=== PATIENT | female | born 1985 | race Caucasian/White ===

== ENCOUNTER 2020-01-13 10:52 | Day surgery (SDC) | payer OTHER, BC ==
[2020-01-13 11:55] VITALS: BMI 31.4
[2020-01-13] MEDS ORDERED: hydrALAZINE 20 MG/ML VIAL SLOW IVP PRN (12:11)
[2020-01-13 13:25] LABS: Bacteria/HPF None Seen HPF (None Seen); Bilirubin Negative (Negative); Blood, Urine Negative (Negative); Clarity Clear (Clear); Glucose, Urine (Dipstick) Normal (Negative); Leukocyte Negative Leu/uL (Negative); Nitrite Negative (Negative); Protein, Urine (Dipstick) Negative (Neg-Trace); RBC/HPF 0-3 HPF (0-3); Squamous Epithelial None Seen HPF (0-3); Urobilinogen Normal mg/dL (Less than 2); WBC/HPF 0-3 HPF (0-3)
--- NOTE | 2020-01-13 17:08 | PRG ---
DATE OF SERVICE: 01/13/2020 PRIMARY OB: Dr. Sabrina Myers. CHIEF COMPLAINT: Decreased movement. HISTORY OF PRESENT ILLNESS: The patient is a 34-year-old female; G1, P0 female with an intrauterine at 27 weeks and 6 days, presents to Labor and Delivery with a 1-day history of decreased movement. The patient reports, however, that by the time she came here and had monitors placed, she began feeling the baby move again. In the process of her evaluation, patient also reports that she has had a 5-day history of fever, a recurrent headache, urinary urgency, dysuria , and overall feeling bad. The patient today reports a history of urinary tract infections and kidney stones in the past. The patient denies cough or shortness of breath. She reports nausea and vomiting, 3 to 4 times a day for the last 4 to 5 days. She denies diarrhea or constipation. She reports that the skin rash has been present for some time now and has been evaluated by her primary provider and several dermatologists and has been recommended to be seen by Rheumatology. The pt reports the rash is improving symptomatically with topical steroid. The patient denies back pain, hip problems, knee problems. Denies vaginal bleeding or leakage of fluid. Denies urinary frequency and does report dysuria. PAST MEDICAL HISTORY: 1. History of kidney stones. 2. Recurrent urinary tract infections. 3. Anxiety. PAST SURGICAL HISTORY: Negative. ALLERGIES: AZITHROMYCIN, PENICILLINS, AND BACTRIM. SOCIAL HISTORY: Denies drug, alcohol, or tobacco use. OB LABS: Unavailable at time of dictation. MEDICATIONS: vitamins and Tylenol. REVIEW OF SYSTEMS: Per HPI. PHYSICAL EXAMINATION: VITAL SIGNS: Blood pressure 126/65, heart rate of 86, saturating 99% on room air, temperature 99.5, and respiratory rate of 18. GENERAL: She appears to be in no acute distress. Her face is flushed and red with a anayeli complexion, which is not her typical complexion. She is alert, oriented , cooperative, and pleasant to interact with. HEAD: Normocephalic and atraumatic. LUNGS: Clear to auscultation bilaterally. HEART: Regular rate and rhythm. ABDOMEN: Gravid and soft. She does have some tenderness with deviation of the uterus to the right in the right mid abdomen in the region of her round ligament. She has some discomfort with the suprapubic tenderness to palpation. She has some mild tenderness with CVA palpation on the right side. EXTREMITIES: Nontender and nonedematous. : Deferred. heart tones shows the fetus with a baseline in the 140s with moderate long-term variability. She has had accelerations. LABORATORY DATA: Urinalysis was performed with a pH of 7.0, specific gravity 1.006, negative protein, negative ketones, negative nitrites, negative leukocyte esterase, negative blood and white blood cells, negative squamous cells, negative bacteria. COVID-19 testing was also collected and is pending. ASSESSMENT AND PLAN: The patient is a 34-year-old female with an intrauterine at 27 weeks and 6 days, presenting for decreased movement. Fetus has had a reassuring heart tracing. During her workup, the patient is noted to have fever as high as 101 at home, headache, nausea and vomiting. The patient is otherwise stable and does not require any special hospital care. She is being discharged home and has been asked to self quarantine until these COVID-19 results returned, which should be later today. addendum: 01/13/20 1900 covid 19 testing is neg. Pt notified by phone. PT to follow up as scheduled with Dr Myers. Job ID: [id number] MTDD
[2020-01-13 18:16] LABS: SARS-CoV-2 MS2 Positive; SARS-CoV-2 N Gene Negative; SARS-CoV-2 S Gene Negative; SARS-CoV-2 orf1ab Negative
== END 2020-01-13 13:57 | disposition home or self-care (01) ==
LOC: L&D/OP 10:52
PROVIDERS: ATTEND Student in an Organized Health Care Education/Training Program
DX: O36.8120 Decreased fetal movements, second trimester, not applicable or unspecified (principal); Z3A.27 27 weeks gestation of pregnancy; Z88.0 Allergy status to penicillin; Z88.1 Allergy status to other antibiotic agents; Z88.2 Allergy status to sulfonamides; Z91.018 Allergy to other foods; Z11.59 Encounter for screening for other viral diseases
CPT/HCPCS: 81001; 87635; U0003

== ENCOUNTER 2020-02-10 11:54 | Day surgery (SDC) | payer OTHER, BC ==
[2020-02-10 12:35] VITALS: BP 133/82; TEMP 99.7
[2020-02-10 12:38] VITALS: BMI 31.6
[2020-02-10] MEDS ORDERED: Metoclopramide HCl 10 MG/2 ML VIAL IVP PRN (13:22)
[2020-02-10] MEDS ORDERED: diphenhydrAMINE 50 MG/ML VIAL IVP PRN (13:23)
[2020-02-10] MEDS ORDERED: Lactated Ringer's 1,000 ML IV SCH (13:30)
[2020-02-10] MEDS ORDERED: hydrALAZINE 20 MG/ML VIAL SLOW IVP PRN (13:30)
--- NOTE | 2020-02-10 17:21 | PRG ---
DATE OF SERVICE: 02/10/2020 PRIMARY OB: Dr. Sabrina Myers. CHIEF COMPLAINT: Elevated blood pressure and headache. HISTORY OF PRESENT ILLNESS: The patient is a 34-year-old female, who is presenting to Labor and Delivery today with a headache that began about 3 o'clock this morning. She also reports that she started checking her blood pressures at home per her doctor's recommendations and has been noticing that they have been running in the 140s. The patient came here for evaluation. Upon arrival, nursing staff worked with her on confirming blood pressure monitoring and was noted to be having some problems with her technique with her wrist cuff. With education of proper placement of her cuff and proper positioning when taking her blood pressure, her blood pressures have returned to normal on her cuff readings that have corresponded with her blood pressures here which have also been normal. The patient reports that she has had migraines with this . Feels like when this headache started, it felt like a migraine. She does have some light sensitivity. She reports that it has been improving as the days progressed. She reports she has had some swelling at home. She denies fever, cough, chest pain, shortness of breath, nausea, vomiting, diarrhea, constipation, hip problems, knee problems, muscle weakness. She denies vaginal bleeding, leakage of fluid, change in discharge, urinary urgency or frequency. PAST MEDICAL HISTORY: 1. History of kidney stones. 2. History of recurrent urinary tract infections. 3. Anxiety. PAST SURGICAL HISTORY: Negative. ALLERGIES: AZITHROMYCIN, PENICILLIN, AND BACTRIM. SOCIAL HISTORY: Denies drug, alcohol, tobacco use. OB LABS: Unavailable at time of dictation. MEDICATIONS: vitamins. REVIEW OF SYSTEMS: Per HPI. PHYSICAL EXAMINATION: VITAL SIGNS: Blood pressure 124/65, heart rate of 90, respiratory rate of 18, saturating 98% on room air, temperature 99.7. GENERAL: She appears to be in no acute distress. She is alert, oriented, cooperative, and pleasant to interact with. HEENT: Head is normocephalic, atraumatic. LUNGS: Clear to auscultation bilaterally. HEART: Has a regular rate and rhythm. ABDOMEN: Gravid, soft, nontender. EXTREMITIES: Nontender, nonedematous. Her DTRs are 1+. She has no upper abdominal tenderness to palpation. heart tracing shows the fetus with a baseline in the 130s with moderate long-term variability, positive 15 x 15 accelerations, no decelerations. Tocometer is without any contractions. The patient after some difficulties got an IV placed for treatment of migraine and she has received one dose of Benadryl and Reglan and the patient is reporting that she is already feeling better. ASSESSMENT AND PLAN: The patient is a 34-year-old female with an intrauterine at 33 weeks and 4 days with no evidence of elevated pressures here. Her headache seems to be responding to just a migraine protocol which we have been able to give after some difficulty getting an IV in her. The patient will be re-evaluated with this next dosing and likely discharged home. Fetus has a category 1 tracing and reactive NST and has been counseled to follow up with her primary OB as scheduled. headache resolved. pt being discharged home Job ID: [id number] MTDD
== END 2020-02-10 17:09 | disposition home or self-care (01) ==
LOC: L&D/OP 11:54
PROVIDERS: ATTEND Student in an Organized Health Care Education/Training Program
DX: O99.89 Other specified diseases and conditions complicating pregnancy, childbirth and the puerperium (principal); R03.0 Elevated blood-pressure reading, without diagnosis of hypertension; R51 Headache; Z3A.33 33 weeks gestation of pregnancy; Z88.0 Allergy status to penicillin; Z88.1 Allergy status to other antibiotic agents; Z88.2 Allergy status to sulfonamides; Z91.018 Allergy to other foods
CPT/HCPCS: J1200; J2765

== ENCOUNTER 2020-03-02 10:24 | Outpatient (CLI) | payer OTHER, BC ==
[2020-03-03 12:20] LABS: SARS-CoV-2 MS2 Positive; SARS-CoV-2 N Gene Negative; SARS-CoV-2 S Gene Negative; SARS-CoV-2 orf1ab Negative
== END 2020-03-02 10:25 | disposition home or self-care (01) ==
LOC: SCSLAB 10:24
PROVIDERS: ATTEND Student in an Organized Health Care Education/Training Program
DX: Z01.812 Encounter for preprocedural laboratory examination (principal); Z11.59 Encounter for screening for other viral diseases
CPT/HCPCS: 87635; U0003

== ENCOUNTER 2020-03-04 18:00 | Inpatient (IN) | payer BC, OTHER ==
[~2020-03-04 18:00] MED LIST: Bupivacaine/Epinephrine 0.25% 30 ML VIAL ONE; Lidocaine 2% MPF 10 ML AMP (For Epidural Use) ONE
[2020-03-04] MEDS ORDERED: Promethazine HCl 25 MG/ML VIAL IM PRN (21:03)
[2020-03-04] MEDS ORDERED: Lidocaine 1% (PF) 30 ML VIAL SC PRN (21:03)
[2020-03-04] MEDS ORDERED: Docusate 100 MG CAP PO PRN (21:03)
[2020-03-04] MEDS ORDERED: Diphenoxylate HCl/Atropine Tablet PO PRN (21:03)
[2020-03-04] MEDS ORDERED: hydrALAZINE 20 MG/ML VIAL SLOW IVP PRN (21:03)
[2020-03-04] MEDS ORDERED: Ibuprofen 800 MG TAB PO PRN (21:03)
[2020-03-04] MEDS ORDERED: Acetaminophen 500 MG TAB PO PRN (21:03)
[2020-03-04] MEDS ORDERED: Ondansetron PF 4 MG/2 ML Vial IVP PRN (21:03)
[2020-03-04] MEDS ORDERED: HYDROcodone/Acetaminophen 5/325 mg Tablet PO PRN (21:03)
[2020-03-04] MEDS ORDERED: NS / Oxytocin 40 units/1000ml 1,000 ML IV PRN (21:03)
[2020-03-04] MEDS ORDERED: Carboprost 250 MCG/ML AMP IM PRN (21:03)
[2020-03-04] MEDS ORDERED: Misoprostol 200 MCG TAB PR PRN (21:03)
[2020-03-04 21:15] VITALS: BMI 37.5
[2020-03-04] MEDS: Lactated Ringer's 1,000 ML IV SCH (22:19)
[2020-03-04] MEDS: Misoprostol 100 MCG TAB VAG SCH (22:19)
[2020-03-04 22:35] LABS: Hemoglobin 11.9 g/dL (12.0-16.0); Mean Corpuscular Hemoglobin 30.7 pg (27.0-31.0); Mean Corpuscular Volume 90.2 fL (78.0-98.0); Mean Platelet Volume 8.9 fL (7.4-10.4); Platelet Count 253 thou/uL (130-400); RBC Distribution Width 12.8 % (11.5-14.5); Red Blood Cell (RBC) Count 3.87 mill/uL (4.20-5.40); White Blood Cell (WBC) Count 15.1 thou/uL (4.8-10.8)
[2020-03-04 23:08] LABS: ALT (SGPT) 12 U/L (8-55); AST (SGOT) 15 U/L (5-34); Albumin 3.3 g/dL (3.5-5.0); Alkaline Phosphatase 108 U/L (40-110); Anion Gap 13 mmol/L (10-20); BUN (Urea Nitrogen) 9 mg/dL (7.0-18.7); Bilirubin, Total 0.3 mg/dL (0.2-1.2); Calc. Creatinine Clearance 205 mL/min (70-130); Calcium 9.8 mg/dL (7.8-10.44); Carbon Dioxide 20 mmol/L (22-29); Chloride 106 mmol/L (98-107); Estimated GFR-MDRD Greater than 90; Glucose 82 mg/dL (70-105); Potassium 3.4 mmol/L (3.5-5.1); Protein, Total 6.3 g/dL (6.0-8.3); Sodium 136 mmol/L (136-145)
[2020-03-04 23:11] LABS: Syphilis Antibody Nonreactive (Nonreactive); Syphilis Antibody Index 0.03 S/CO (<1.00 Non-Reactive)
[2020-03-04 23:16] LABS: HBSAg Index 0.14 S/CO (0-0.99); Hep B Surf Ag Non-Reactive S/CO (NonReactive)
[2020-03-05] MEDS: Butorphanol Tartrate 1 MG/ML VIAL SLOW IVP PRN ×4 (02:08→08:52)
[2020-03-05] MEDS: Misoprostol 100 MCG TAB VAG SCH (02:43)
[2020-03-05] MEDS: Lactated Ringer's 1,000 ML IV SCH ×3 (06:54→19:07)
[2020-03-05] MEDS ORDERED: Fentanyl 4 mcg/Bup 0.1% Cadd 100 ML ONE ×2 (09:37→17:18)
--- NOTE | 2020-03-05 09:44 | PDOC.LDHP ---
Labor and Delivery H&P Chief complaint: scheduled induction HPI: 34yo at 37w0d by LMP here for IOL 2/2 GHTN. s/p 2 cytotec overnight, + painful ctx. No sx PIH Current gestational age (weeks): 37 Due date: 03/26/20 Dating criteria: last menstrual period Grav: 1 Para: 0 Current complications: gestational hypertension Abnormal US findings: No Past Medical History: denies Current medications: pre-celeste vitamins Previous surgical history: none Allergies/Adverse Reactions: Allergies Allergy/AdvReac Type Severity Reaction Status Date / Time artichoke Allergy Verified 01/13/20 11:49 azithromycin Allergy Verified 01/13/20 11:49 [From Zithromax Z-Joselito] cinnamon Allergy Verified 01/13/20 11:49 Penicillins Allergy Verified 01/13/20 11:49 sulfamethoxazole Allergy Verified 01/13/20 11:49 [From Bactrim] trimethoprim [From Bactrim] Allergy Verified 01/13/20 11:49 Social history: none - Physical Exam Vital signs reviewed and normal: yes Abnormal vital signs: mild range bp General: NAD Heart: RRR Lungs: CTAB Abdomen: gravid Extremeties: no edema FHT: category 1 [place] contractions every: 2min - Vaginal Exam cm dilated: 0 Effacement: 50% Station: -2 (cook balloon placed 60/60) - Assessment L&D Assessment: medically indicated induction - Plan Plan: admit to L&D, cervical ripening, labor augmentation if indicated, informed consent obtained, anesthesia consult for pain management, other (labs wnl, no sx PIH, mag for severe features)
[2020-03-05] MEDS: NS w/ Oxytocin 10 units 500 ML IV SCH (11:22)
--- NOTE | 2020-03-05 12:49 | PDOC.LDPN ---
Labor & Delivery Progress Note - Subjective Subjective: comfortable - Objective Vital signs reviewed and normal: yes General: NAD Uterine fundus: non tender Dilation: 1 Effacement: 50% Station: -3 FHT: category 1 [place] contractions every: 2-4min Plan: continue plan of care (maintain cook until favorable leon)
[2020-03-05] MEDS ORDERED: diphenhydrAMINE 50 MG/ML VIAL ONE ×2 (16:52→16:53)
[2020-03-05] MEDS ORDERED: Promethazine HCl 25 MG/ML VIAL IM PRN (17:01)
[2020-03-05] MEDS ORDERED: EPHEDRINE 25 MG/5 ML SYRINGE SLOW IVP PRN (17:01)
[2020-03-05] MEDS ORDERED: Naloxone HCl 0.4 mg/ml Vial IVP PRN ×2 (17:01)
[2020-03-05] MEDS ORDERED: Lactated Ringer's 500 ML IV PRN (17:01)
[2020-03-05] MEDS ORDERED: Acetaminophen 325 MG TAB PO PRN (17:01)
[2020-03-05] MEDS ORDERED: Ondansetron PF 4 MG/2 ML Vial IVP PRN (17:01)
[2020-03-05] MEDS ORDERED: Communication Order-Pharmacy FS SCH (17:15)
[2020-03-05] MEDS: diphenhydrAMINE 50 MG/ML VIAL IVP PRN (20:58)
[2020-03-06] MEDS ORDERED: Fentanyl 4 mcg/Bup 0.1% Cadd 100 ML ONE ×3 (00:38→15:10)
[2020-03-06] MEDS: Fentanyl 4 mcg/Bupivacaine 0.1% Cassette 100 ML EPIDURAL SCH ×3 (00:42→15:15)
[2020-03-06] MEDS: diphenhydrAMINE 50 MG/ML VIAL IVP PRN ×3 (00:42→14:50)
[2020-03-06] MEDS ORDERED: NS w/ Oxytocin 10 units 500 ML ONE (06:46)
[2020-03-06] MEDS: Misoprostol 100 MCG TAB VAG SCH ×4 (08:28→22:33)
--- NOTE | 2020-03-06 09:54 | PDOC.LDPN ---
Labor & Delivery Progress Note - Subjective Subjective: comfortable - Objective Vital signs reviewed and normal: yes General: resting Dilation: 3 Effacement: 50% Station: -2 FHT: category 1 AROM: clear fluid - Assessment (1) 37 weeks gestation of Code(s): Z3A.37 - 37 WEEKS GESTATION OF Current Visit: Yes Status : Acute (2) Gestational hypertension Code(s): O13.9 - GESTATIONAL HTN W/O SIGNIFICANT PROTEINURIA, UNSP TRIMESTER Current Visit: Yes Status: Acute Plan: other -: Pt here for IOL for GHTN @ 37+ weeks. Exam /-2 AROM w clear fluid w pitocin off right now. Reviewed waiting 1-2 hours to see if spontaneous contractions/labor noted after AROM. If no regular ctx will restart pitocin and place IUPC. Discussed plan of care and normal labor expectations during IOL.
--- NOTE | 2020-03-06 12:00 | PDOC.LDPN ---
Labor & Delivery Progress Note - Subjective Subjective: comfortable - Objective Vital signs reviewed and normal: yes General: resting Dilation: 3 Effacement: 75% Station: -2 FHT: category 1 AROM: clear fluid IUPC placed: yes FSE placed: yes - Assessment (1) 37 weeks gestation of Code(s): Z3A.37 - 37 WEEKS GESTATION OF Current Visit: Yes Status : Acute (2) Gestational hypertension Code(s): O13.9 - GESTATIONAL HTN W/O SIGNIFICANT PROTEINURIA, UNSP TRIMESTER Current Visit: Yes Status: Acute Plan: continue plan of care, pitocin for augmentation -: IUP and FSE placed, no spont labor noted after AROM and pit break, restart pitocin now discussed.
[2020-03-06] MEDS: Lactated Ringer's 1,000 ML IV SCH ×3 (12:17→21:42)
[2020-03-06] MEDS ORDERED: CEFAZOLIN 2 GM in Premix Bag 1 BAG IVPB SCH (16:15)
[2020-03-06] MEDS ORDERED: Lidocaine 2% 10 ML INJ ONE (16:21)
[2020-03-06] MEDS ORDERED: MORPHINE 5 MG/10 ML PF VIAL ONE (16:21)
[2020-03-06] MEDS ORDERED: PHENYLEPHRINE-NS 100 MCG/ML 10 ML SYRINGE ONE (16:21)
--- NOTE | 2020-03-06 16:21 | PDOC.LDPN ---
Labor & Delivery Progress Note - Subjective Subjective: painful contractions - Objective Vital signs reviewed and normal: yes General: breathing through contractions Dilation: 3 Effacement: 75% Station: -3 FHT: category 1 - Assessment (1) 37 weeks gestation of Code(s): Z3A.37 - 37 WEEKS GESTATION OF Current Visit: Yes Status : Acute (2) Gestational hypertension Code(s): O13.9 - GESTATIONAL HTN W/O SIGNIFICANT PROTEINURIA, UNSP TRIMESTER Current Visit: Yes Status: Acute (3) Failed induction of labor Code(s): O61.9 - FAILED INDUCTION OF LABOR, UNSPECIFIED Current Visit: Yes Status: Acute Plan: other -: Pt w admit since 03/04, was 3cm and AROM this AM at approx 0930. Cervix remains unchanged and station has regressed despite pitocin and position change. Discussed no change is station or dilation for 7 hours and recommendation for CS for failed IOL. Pt agrees with plan of care. Questions answered and allergies reviewed. She reports rash with PCN, no known allergy to cephalosporins, reports severe itching w Riya, will hold Azihtro and order Ancef for surgical prophylaxis.
[2020-03-06] MEDS ORDERED: EPINEPHrine 1 MG/ML AMP ONE (16:22)
[2020-03-06] MEDS ORDERED: Oxytocin 10 UNITS/ML VIAL ONE (16:34)
[2020-03-06] MEDS ORDERED: Naloxone HCl 0.4 mg/ml Vial IVP PRN ×2 (17:23)
[2020-03-06] MEDS ORDERED: L&D-Morphine 4 MG/ML VIAL SLOW IVP PRN (17:23)
[2020-03-06] MEDS ORDERED: Naloxone HCl 0.4 mg/ml Vial IV PRN (17:23)
[2020-03-06] MEDS ORDERED: Meperidine HCl/PF 25 MG/ML VIAL SLOW IVP PRN (17:23)
[2020-03-06] MEDS ORDERED: diphenhydrAMINE 50 MG/ML VIAL IVP PRN (17:23)
[2020-03-06] MEDS ORDERED: Ondansetron HCl/PF 4 MG/2 ML Vial IVP PRN (17:23)
[2020-03-06] MEDS ORDERED: Ondansetron PF 4 MG/2 ML Vial IVP PRN ×2 (17:23→19:06)
[2020-03-06] MEDS ORDERED: Promethazine HCl 25 MG SUPP PR PRN (17:23)
[2020-03-06] MEDS ORDERED: HYDROmorphone 2 MG/ML VIAL SLOW IVP PRN (17:23)
[2020-03-06] MEDS ORDERED: Promethazine HCl 25 MG/ML VIAL IM PRN ×2 (17:23→19:06)
[2020-03-06] MEDS ORDERED: Ketorolac Tromethamine 30 MG/ML VIAL ONE (17:24)
--- NOTE | 2020-03-06 17:25 | PDOC.OPDEL ---
OB Operative/Delivery Note Delivery Dr/Surgeon: Art Assist: Angel Luis Pre-Delivery Diagnosis: active labor, medically indicated induction (GHTN) Procedure/Post Delivery Dx: primary low transverse CS Weeks gestation: 37 Anesthesia: epidural - Findings A Sex: female - Additional Findings/Plan Placenta delivered: spontaneous findings: low transverse hysterotomy without extension, normal uterus, normal tubes, normal ovaries Estimated blood loss: 500ml Post delivery plan: routine recovery
[2020-03-06] MEDS ORDERED: Ketorolac Tromethamine 30 MG/ML VIAL IVP SCH (17:30)
[2020-03-06] MEDS ORDERED: Communication Order-Pharmacy FS SCH (17:30)
[2020-03-06] MEDS: Ketorolac Tromethamine 30 MG/ML VIAL IVP PRN ×2 (17:34→21:44)
--- NOTE | 2020-03-06 17:56 | OP ---
DATE OF PROCEDURE: 03/06/2020 PREOPERATIVE DIAGNOSES: 1. A 34-year-old G1 with gestational hypertension, undergoing induction of labor. 2. Failed induction with failure to progress past 3 cm. FRUIT GRADER OPERATOR: Diana Hein MD, NUCLEAR EQUIPMENT RESEARCH ENGINEER Medicine Resident. ANESTHESIA: Epidural. ANESTHESIOLOGIST: Cosme Smith MD. COMPLICATIONS: None. ESTIMATED BLOOD LOSS: 500 mL. QUANTITATIVE BLOOD LOSS: Pending. OPERATIVE FINDINGS: 1. Low-transverse hysterotomy without extension. 2. Vigorous female infant to the warmer. Apgars and weight pending at the time of dictation. 3. Normal-appearing uterus, tubes, and ovaries bilaterally. 4. Surgical site hemostatic. PROCEDURE IN DETAIL: The patient was taken back to the OR with IV fluids running. A Jurado catheter and epidural catheter that were previously placed. Once the patient was in the OR, she was placed in dorsal supine position with a left lateral tilt. heart tones were Doppler in 130s. 2 g of Ancef were administered. The abdomen was prepped and draped in normal fashion for section. Anesthesia was tested and found to be adequate. A Pfannenstiel skin incision was made with a scalpel. Skin incision was carried down through subcutaneous tissue to the fascia. Once the fascia was reached, it was incised in the midline and extended superolaterally using curved Valentine scissors. Cat clamps were placed at the superior border of the fascia, which was sharply and bluntly dissected off the rectus abdominis muscles. In similar fashion, Cat clamps were placed at the inferior border of the fascia, which was sharply and bluntly dissected down towards the level of the pubic symphysis. The rectus muscle and peritoneum were bluntly entered in the midline and stretched laterally. An Kaleb O retractor was placed into the peritoneal cavity for retraction, visualization, and protection of the wound. A bladder flap was created using the scalpel and the bladder was dissected away from the planned hysterotomy site. A low-transverse hysterotomy was made with a scalpel. The hysterotomy was bluntly entered and stretched using the Olivares maneuver. The infant was delivered without difficulty through the hysterotomy. The nose and mouth were suctioned. The cord was doubly clamped and cut, and the infant was handed off to special care nurses in attendance. Cord blood was collected. The placenta was delivered. The uterus was exteriorized, massaged firm, and cleared of clot and debris. Uterus was replaced into the abdominal cavity. The hysterotomy was inspected. No extension noted. The hysterotomy was closed with Monocryl suture in a running locked fashion with a 2nd imbricating layer completed with Monocryl suture as well. After the hysterotomy was closed, it was inspected with no bleeding noted. The fundus was noted to be firm. The hysterotomy and paracolic gutters were irrigated and suctioned dry. The hysterotomy was inspected again with no bleeding noted. The Kaleb O retractor was removed from the abdominal cavity. The rectus muscle and fascia were inspected with no bleeding noted. The rectus fascia was reapproximated with PDS suture from corner to corner in a running fashion. The subcutaneous tissue was then irrigated and dry. Any small areas of bleeding were controlled with Bovie cauterization. The subcutaneous tissue was reapproximated with plain gut suture. The skin was closed with 4-0 Monocryl and dressed with Dermabond dressing. The patient tolerated the procedure well. The counts were correct. There were no complications. Job ID: [id number]
[2020-03-06] MEDS ORDERED: Bisacodyl 10 MG SUPP PR PRN (19:06)
[2020-03-06] MEDS ORDERED: NS / Oxytocin 40 units/1000ml 1,000 ML IV SCH (19:06)
[2020-03-06] MEDS ORDERED: Acetaminophen 325 MG TAB PO PRN (19:06)
[2020-03-06] MEDS ORDERED: hydrALAZINE 20 MG/ML VIAL SLOW IVP PRN (19:06)
[2020-03-06] MEDS ORDERED: Lanolin Ointment 7 GM TUBE TOP PRN (19:06)
[2020-03-06] MEDS ORDERED: diphenhydrAMINE 25 MG CAP PO PRN (19:06)
[2020-03-06] MEDS ORDERED: HYDROcodone/Acetaminophen 5/325 mg Tablet PO PRN (20:58)
[2020-03-06] MEDS ORDERED: traMADol HCl 50 MG TAB PO PRN (20:58)
[2020-03-06] MEDS: Docusate Calcium (SURFAK) 240 MG CAP PO SCH (21:08)
[2020-03-06] MEDS: Simethicone Chewable 80 MG TAB PO PRN (21:08)
[2020-03-06] MEDS: HYDROcodone/Acetaminophen 5/325 mg Tablet PO PRN (21:10)
[2020-03-06] MEDS: Ferrous Sulfate 325 MG TAB PO SCH (22:30)
[2020-03-06] MEDS: NS w/ Oxytocin 10 units 500 ML IV SCH (22:39)
[2020-03-07] MEDS: Simethicone Chewable 80 MG TAB PO PRN ×4 (00:37→17:05)
[2020-03-07] MEDS: Ketorolac Tromethamine 30 MG/ML VIAL IVP PRN ×2 (03:48→15:41)
[2020-03-07 06:55] LABS: Hemoglobin 10.9 g/dL (12.0-16.0); Mean Corpuscular HGB CONC 34.1 g/dL (32.0-36.0); Mean Corpuscular Hemoglobin 31.2 pg (27.0-31.0); Mean Corpuscular Volume 91.4 fL (78.0-98.0); Mean Platelet Volume 7.7 fL (7.4-10.4); Platelet Count 201 thou/uL (130-400); RBC Distribution Width 12.6 % (11.5-14.5); Red Blood Cell (RBC) Count 3.51 mill/uL (4.20-5.40); White Blood Cell (WBC) Count 13.8 thou/uL (4.8-10.8)
--- NOTE | 2020-03-07 07:17 | PDOC.PP ---
Post Progress Note Post Day #: 1-Post op Subjective: Good pain control. Baby doing well. PO intake tolerated: yes Flatus: yes Ambulation: yes Vital Signs (12 hours) Temp Pulse Resp BP Pulse Ox 03/07/20 04:15 98.9 F 92 16 94/55 L 03/07/20 00:40 98.4 F 97 16 111/58 L 03/06/20 22:00 96 104/59 L 03/06/20 21:15 91 102/65 03/06/20 20:00 98.6 F 95 16 110/64 95 Weight Weight 240 lb - Physical Examination Abdominal: + bowel sounds, lochia (mild), no distention, appropriately TTP Result Diagrams: 03/07/20 06:44 03/04/20 20:00 Additional Labs: Post Labs Blood Type A NEGATIVE 03/04/20 23:04 Hep Bs Antigen Non-Reactive S/CO (NonReactive) 03/04/20 22:13 - Assessment/Plan Post op day 1 from primary c section for failed induction for gestational hypertension. Hemodynamically stable. Blood pressures normalized. Routine care...
[2020-03-07] MEDS: Ferrous Sulfate 325 MG TAB PO SCH ×2 (08:18→22:13)
[2020-03-07] MEDS ORDERED: Adacel (T-DAP) 0.5 ML SYRINGE IM ONE (09:00)
[2020-03-07] MEDS: Docusate Calcium (SURFAK) 240 MG CAP PO SCH ×2 (09:03→21:16)
[2020-03-07] MEDS: Prenatal Vitamin 1 TAB PO SCH (09:03)
[2020-03-07] MEDS: HYDROcodone/Acetaminophen 5/325 mg Tablet PO PRN ×4 (09:04→21:17)
[2020-03-07] MEDS: Ibuprofen 800 MG TAB PO SCH (21:17)
[2020-03-08] MEDS: Simethicone Chewable 80 MG TAB PO PRN (01:11)
[2020-03-08] MEDS: HYDROcodone/Acetaminophen 5/325 mg Tablet PO PRN ×3 (01:31→10:29)
[2020-03-08] MEDS ORDERED: Ondansetron ODT 4 MG TAB PO PRN (04:20)
--- NOTE | 2020-03-08 05:52 | PDOC.PP ---
Post Progress Note Post Day #: 2 Subjective: Patient with progressive discomfort and distension overnight. Before evening, had not moved much but felt better with walking. Has not had a BM but feels like she needs to. Had some N/V this am. PO intake tolerated: yes Flatus: yes Ambulation: yes Vital Signs (12 hours) Temp Pulse Resp BP Pulse Ox 03/08/20 05:15 98.1 F 99 22 H 127/74 98 03/08/20 00:28 98.4 F 84 18 133/77 03/07/20 19:55 97.7 F 89 18 96/52 L 97 Weight Weight 240 lb - Physical Examination General: NAD Respiratory: non-labored breathing Abdominal: lochia (normal), appropriately TTP Deviation from normal: moderate distension but soft Fundus firm & at: below umbilicus Skin: CS incision dry & intact, no rash Neurological: no gross focal deficits Psychiatric: A&Ox3, normal affect Result Diagrams: 03/07/20 06:44 03/04/20 20:00 Additional Labs: Post Labs Blood Type A NEGATIVE 03/04/20 23:04 Hep Bs Antigen Non-Reactive S/CO (NonReactive) 03/04/20 22:13 (1) delivery due to maternal disorder Code(s): O99.89 - OTH DISEASES AND CONDITIONS COMPL PREG/CHLDBRTH Status: Acute (2) Failed induction of labor Code(s): O61.9 - FAILED INDUCTION OF LABOR, UNSPECIFIED Status: Acute (3) Gestational hypertension Code(s): O13.9 - GESTATIONAL HTN W/O SIGNIFICANT PROTEINURIA, UNSP TRIMESTER Status: Acute - Assessment/Plan Patient feeling some relief with passing gas but still very uncomfortable. Has received Dulcolax suppository about 1.5 hours ago. Getting Zofran for N/V. Vitals are stable but will repeat cbc. KUB ordered. Will continue to monitor.
[2020-03-08] MEDS: Ibuprofen 800 MG TAB PO SCH ×2 (06:09→14:21)
[2020-03-08 06:24] LABS: #Eosinphils 0.1 thou/uL (0.0-0.7); #Lymphocytes 1.1 thou/uL (1.20-3.40); #Neutrophils 12.7 thou/uL (1.40-6.50); %Basophils 0.2 % (0.0-1.0); %Eosinophils 0.7 % (0.0-10.0); %Lymphocytes 7.1 % (21.0-51.0); %Monocytes 6.6 % (0.0-10.0); %Neutrophils 85.4 % (42.0-75.0); Hemoglobin 10.7 g/dL (12.0-16.0); Mean Corpuscular HGB CONC 32.9 g/dL (32.0-36.0); Mean Corpuscular Hemoglobin 30.2 pg (27.0-31.0); Mean Corpuscular Volume 91.9 fL (78.0-98.0); Mean Platelet Volume 7.3 fL (7.4-10.4); Platelet Count 267 thou/uL (130-400); RBC Distribution Width 12.6 % (11.5-14.5); Red Blood Cell (RBC) Count 3.55 mill/uL (4.20-5.40); White Blood Cell (WBC) Count 14.9 thou/uL (4.8-10.8)
--- NOTE | 2020-03-08 07:36 | RAD ---
KUB: DATE: 03/08/2020. PROVIDED CLINICAL HISTORY: Abdominal distention. FINDINGS: No comparisons. There is nonspecific gaseous distention of bowel, predominantly within the upper abd omen and left upper quadrant. This appears predominantly on the basis of colon distention. There is no definite radiographic evidence for an obstructive process. The supine nature of the examination is limited and its assessment for pneumoperitoneum, without evidence for such. IMPRESSION: Nonspecific mild gaseous distention of bowel. POS: GRICELDA
[2020-03-08] MEDS: Docusate Calcium (SURFAK) 240 MG CAP PO SCH (09:40)
[2020-03-08] MEDS: Prenatal Vitamin 1 TAB PO SCH (09:40)
[2020-03-08] MEDS: Ferrous Sulfate 325 MG TAB PO SCH (09:40)
[2020-03-08 09:56] VITALS: BP 120/83; TEMP 98.6
== END 2020-03-08 16:30 | disposition home or self-care (01) | DRG 788 ==
LOC: L&D 20:35 → 3SW 03-06 20:59 → UNDODISIN 03-08 14:50
PROVIDERS: ADMIT Student in an Organized Health Care Education/Training Program; ATTEND Student in an Organized Health Care Education/Training Program
PROC: 10D00Z1 Extraction of Products of Conception, Low, Open Approach (ICD-10-PCS; principal; 2020-03-06)
PROC: 10907ZC Drainage of Amniotic Fluid, Therapeutic from Products of Conception, Via Natural or Artificial Opening (ICD-10-PCS; 2020-03-06)
PROC: 3E0P7VZ Introduction of Hormone into Female Reproductive, Via Natural or Artificial Opening (ICD-10-PCS; 2020-03-06)
PROC: 3E033VJ Introduction of Other Hormone into Peripheral Vein, Percutaneous Approach (ICD-10-PCS; 2020-03-06)
PROC: 10H07YZ Insertion of Other Device into Products of Conception, Via Natural or Artificial Opening (ICD-10-PCS; 2020-03-06)
DX: O13.4 Gestational [pregnancy-induced] hypertension without significant proteinuria, complicating childbirth (principal); O61.0 Failed medical induction of labor; Z3A.37 37 weeks gestation of pregnancy; Z37.0 Single live birth; Z88.0 Allergy status to penicillin; Z88.1 Allergy status to other antibiotic agents; Z88.2 Allergy status to sulfonamides
CPT/HCPCS: 36415; 51702; 74018; 80053; 85025; 85027; 86780; 86850; 86870; 86900; 86901; 87340; J0171; J0595; J0690; J1200; J1885; J2001; J2274; J2405; J2590; Q0162; Q0163

== ENCOUNTER 2020-03-13 14:08 | Inpatient (IN) | payer OTHER, BC ==
--- NOTE | 2020-03-13 14:37 | RAD ---
EXAM: CHEST ONE VIEW HISTORY: Trouble breathing. Gasping for air middle of night. COMPARISON: None FINDINGS: Cardiac silhouette is magnified by projection but is at the upper limits of normal. Pulmonary vascula ture is within normal limits. There are mild patchy opacities and interstitial densities seen in the perihilar regions bilaterally as well as at the left lung base. No consolidation or pleural fluid is evident. The osseous structures are intact. IMPRESSION: Interstitial and mild patchy parenchymal densities greater in the right perihilar location but also s een on the left and at the left lung base. Findings could be related to mild asymmetric pulmonary edema versus infectious process. Follow-up to resolution is recommended.
[2020-03-13] MEDS ORDERED: Iopamidol 370 76% 100 ML VIAL ONE (14:41)
[2020-03-13 14:48] LABS: #Eosinphils 0.1 thou/uL (0.0-0.7); #Lymphocytes 1.4 thou/uL (1.20-3.40); #Monocytes 0.6 thou/uL (0.11-0.59); #Neutrophils 8.8 thou/uL (1.40-6.50); %Basophils 0.2 % (0.0-1.0); %Eosinophils 0.9 % (0.0-10.0); %Lymphocytes 12.7 % (21.0-51.0); %Monocytes 5.8 % (0.0-10.0); %Neutrophils 80.4 % (42.0-75.0); Hemoglobin 11.4 g/dL (12.0-16.0); Mean Corpuscular HGB CONC 34.3 g/dL (32.0-36.0); Mean Corpuscular Hemoglobin 31.3 pg (27.0-31.0); Mean Corpuscular Volume 91.4 fL (78.0-98.0); Mean Platelet Volume 6.6 fL (7.4-10.4); Platelet Count 368 thou/uL (130-400); RBC Distribution Width 12.5 % (11.5-14.5); Red Blood Cell (RBC) Count 3.65 mill/uL (4.20-5.40); White Blood Cell (WBC) Count 10.9 thou/uL (4.8-10.8)
[2020-03-13 14:55] LABS: INR-International Normal Ratio 0.9; PTT 30.1 sec (22.9-36.1); Prothrombin Time 12.1 sec (12.0-14.7)
[2020-03-13 15:09] LABS: ALT (SGPT) 14 U/L (8-55); AST (SGOT) 15 U/L (5-34); Albumin 3.4 g/dL (3.5-5.0); Alkaline Phosphatase 100 U/L (40-110); Anion Gap 14 mmol/L (10-20); BUN (Urea Nitrogen) 9 mg/dL (7.0-18.7); Bilirubin, Total 0.3 mg/dL (0.2-1.2); Calc. Creatinine Clearance 0 mL/min (70-130); Calcium 9.3 mg/dL (7.8-10.44); Carbon Dioxide 23 mmol/L (22-29); Chloride 106 mmol/L (98-107); Estimated GFR-MDRD 89; Globulin 3.1 g/dL (2.4-3.5); Glucose 96 mg/dL (70-105); Potassium 3.6 mmol/L (3.5-5.1); Protein, Total 6.5 g/dL (6.0-8.3); Sodium 139 mmol/L (136-145)
--- NOTE | 2020-03-13 16:04 | CT ---
CT ANGIOGRAM THORAX WITH IV CONTRAST AND 3-D RECONSTRUCTIONS CLINICAL INDICATION: Patient with dyspnea and history of section 7 days ago. Shortness of breath at night. COMPARISON: None FINDINGS: Pulmonary arteries: No filling defects are seen in the pulmonary arteries to suggest a pulmonary embo carol ann. Aorta: The aorta is normal in caliber without evidence of an aortic dissection. Lungs: There are small bilateral pleural effusions and associated passive atelectasis. There are patc hy increased alveolar opacities within a perihilar location in the upper and lower lobes as well as involving the right middle lobe. Mediastinum: There are nonspecific mediastinal lymph nodes present. Largest left para-aortic lymph no de which is in region of the AP window measures 1.1 cm in short axis dimension. There is diminished attenuation anterior superior mediastinum which is probably related to residual thymic tissue. There is soft tissue density in the subcarinal region which may related to combination of the esophagus and mildly enlarged lymph node measuring 1.7 cm. There is mild soft tissue density in each hilar siena on as well. Lymph nodes may be reactive in origin. Thyroid gland: Grossly normal CT appearance where visualized. Osseous structures: No acute process. Chest wall: No abnormality visualized. Upper abdomen: Within normal limits for phase of imaging. IMPRESSION: 1. Bilateral perihilar alveolar opacities which may be related to pulmonary edema or infectious proce ss. There does not appear to be interstitial thickening present. Follow-up evaluation is recommended to ensure resolution. 2. Small bilateral pleural effusions. 3. No CT evidence of a pulmonary embolus. 4. Mediastinal and hilar lymphadenopathy which may be reactive in origin.
[2020-03-13] MEDS ORDERED: Nitroglycerin 2% Ointment 1 INCH/1 GM Packet ONE (16:26)
[2020-03-13] MEDS ORDERED: Furosemide 100 MG/10 ML VIAL ONE (16:26)
[2020-03-13 16:33] LABS: CKMB 1.3 ng/mL (0-6.6)
[2020-03-13] MEDS ORDERED: Acetaminophen 500 MG TAB ONE ×3 (16:44→16:46)
[2020-03-13] MEDS ORDERED: Ibuprofen 600 MG TAB PO PRN (20:30)
--- NOTE | 2020-03-13 21:00 | HP ---
TIME OF SERVICE: 1940 hours. REASON FOR ADMISSION: Possible pulmonary edema with shortness of breath, rule out cardiomyopathy. HISTORY OF PRESENT ILLNESS: Ms. Schmid is a 34-year-old, 1, para 1, status post on 03/06. She was induced by Dr. Myers, for gestational hypertension. Her postoperative course in the hospital was complicated by a mild ileus, which resolved, and she was discharged home on postoperative day #3, post . She presented to the emergency room this afternoon complaining of waking up with shortness of breath. The emergency room physician presented as the patient is having a CT scan and chest x-ray and physical findings consistent with pulmonary edema. The patient had a negative CTA, ruling out pulmonary embolus. Final radiology report, however, reveals small bilateral pleural effusions with bilateral perihilar alveolar opacities consistent with possible pulmonary edema. No cardiomegaly is noted. Chest x-ray revealed cardiac silhouette at the upper limits of normal with interstitial mild patchy parenchymal densities, greater in the right perihilar region. The patient's vital signs in the emergency room consisted of pulse between 62 and 79, respiratory rate of between 18 and 23, blood pressures that ranged between 115 and 154 systolic, 83 to 97 diastolic with 94% to 98% sats on room air. The patient received 10 of Lasix in the emergency room. Echocardiogram was ordered in the emergency room, however, has not been completed at this time. NUCLEAR TEST TECHNICIAN HISTORY: As noted. PAST MEDICAL HISTORY: Significant for anxiety. PAST SURGICAL HISTORY: . ALLERGIES: ARTICHOKE, ZITHROMAX, CINNAMON, PENICILLIN, SULFAMETHOXAZOLE AND TRIMETHOPRIM. SOCIAL HISTORY: Denies tobacco, alcohol, or IV drug use. FAMILY HISTORY: Noncontributory. REVIEW OF SYSTEMS: Noncontributory. PHYSICAL EXAMINATION: GENERAL: White female, in no acute distress this time. VITAL SIGNS: Respirations are 17, pulse is 85, blood pressure 128/72. She is afebrile. She had a negative COVID test preadmission for her . LUNGS: Clear to auscultation bilaterally. HEART: Regular rate and rhythm. ABDOMEN: Soft and nontender. Her incision is intact and dry. EXTREMITIES: Without clubbing, cyanosis, or edema. Of note, the patient states that her edema that she had immediately post-delivery has decreased significantly, and she is peeing frequently status post Lasix. LABORATORY DATA: The patient has a white count of 10.9, hematocrit of 33.4, which is consistent with her postoperative hematocrit. PT, PTT, and INR all within normal limits. Comprehensive metabolic panel is within normal limits. BNP is elevated at 288. Troponin is 0.034. Echo is pending. IMPRESSION: Mild pulmonary edema at most, doubt cardiomyopathy, but cannot rule out without echocardiogram or evaluation of ejection fraction. Mild elevations of BNP and troponin. PLAN: We will not administer a second dose of Lasix. We will not give the patient IV fluids. We will place on a heart healthy diet, repeat BNP and troponin in a.m., and get echo, and follow the patient clinically. Job ID: [id number]
[2020-03-14 06:28] LABS: ALT (SGPT) 13 U/L (8-55); AST (SGOT) 13 U/L (5-34); Alkaline Phosphatase 85 U/L (40-110); Anion Gap 12 mmol/L (10-20); BUN (Urea Nitrogen) 13 mg/dL (7.0-18.7); Bilirubin, Total 0.3 mg/dL (0.2-1.2); Calc. Creatinine Clearance 173 mL/min (70-130); Calcium 8.3 mg/dL (7.8-10.44); Carbon Dioxide 23 mmol/L (22-29); Chloride 107 mmol/L (98-107); Estimated GFR-MDRD Greater than 90; Globulin 2.8 g/dL (2.4-3.5); Glucose 96 mg/dL (70-105); Potassium 3.3 mmol/L (3.5-5.1); Protein, Total 5.8 g/dL (6.0-8.3); Sodium 139 mmol/L (136-145)
[2020-03-14 10:08] VITALS: BP 137/74; TEMP 98.1
--- NOTE | 2020-03-15 21:37 | DIS ---
DATE OF ADMISSION: 03/13/2020 DATE OF DISCHARGE: 03/14/2020 ADMITTING DIAGNOSES: 1. Shortness of breath. 2. state one week, status post . 3. pulmonary edema. 4. Mild elevations in BNP and troponin. DISCHARGE DIAGNOSES: 1. Shortness of breath. 2. state one week, status post . 3. pulmonary edema. 4. Mild elevations in BNP and troponin. PROCEDURES: CT angiogram, echocardiogram, and serial labs. HISTORY OF PRESENT ILLNESS: The patient is a 34-year-old female about seven days out from a primary , presenting with shortness of breath. The patient was noted to have very mild pulmonary edema and no evidence of PE. The patient also had a very mild bump in her troponin at 0.034 and a mildly elevated BNP at 288. Given the picture, the patient was admitted to the hospital for serial labs and echocardiogram to evaluate her cardiac function. The rest of her lab work has all returned negative including CMP, coags and hemoglobin and hematocrit. Her echocardiogram has returned normal on preliminary study with a normal ejection fraction. Her repeat BNP is stable at 273 and troponin is still pending. The patient reports that she slept well overnight, has had no problems, and was able to stay supine, has no shortness of breath. She reports that she had a good response to the Lasix that she was given yesterday in the emergency room. Vital signs this morning, blood pressure is 130/69, temperature 98.3, pulse is 78, respiratory rate of 18, and saturating 97% on room air. In general, she appears to be in no acute distress. She is alert, oriented, cooperative, and pleasant to interact with. Head is normocephalic and atraumatic. The patient is supine in bed, woken at time of evaluation. DISCHARGE INSTRUCTIONS: The patient is being discharged home pending her troponin lab results. She has an appointment to see Dr. Myers on Monday, where she can get her formal echocardiogram review with her physician. The patient will be given instructions to follow up with the medical provider sooner if she gets worsening of symptoms. Job ID: [id number]
--- NOTE | 2020-03-16 08:38 | PQF ---
CLINICAL DOCUMENTATION CLARIFICATION FORM: Dear : Alexi Wade Date / Time: 03/16/2020 08:37 Please exercise your independent, professional judgment in responding to the clarification form. Clinical indicators are provided on the bottom of this form for your review Please check appropriate box(es): [ ] Associated Diagnosis: Acute CHF (Please specify type) [ ] Systolic [ ] Diastolic [ ] Combined systolic/diastolic [ x ] Not clinically significant laboratory findings [ x ] Other diagnosis post edema [ ] Unable to determine Physician Signature: Date/Time: For continuity of documentation, please document condition throughout progress notes and discharge summary. Thank You. To be completed by CDI/Coding staff for physician review: Present Clinical Indicators - Signs / Symptoms / Labs Results and Location in Medical Record [X] Labs BNP: 03/1357=016.4 03/1402=095. Labs 03/04 [X] Labs Troponin: 03/13=0.034 03/14=0.013 Labs 03/04 [X] rule out cardiomyopathy HP 03/13 [X] Interstitial and mild patchy parenchymal densities....could be mild asymmetric pulmonary edema vs infectious process Chest Xray 03/13 [X] reports SOB ED Notes 03/13 [X] edema present to bilateral lower extremities ED Notes 03/13 [X] bilateral pleural effusion and pulmonary edema ED Notes 03/13 [X] EF 69-65% TTE 03/13 Present Risk Factors Results and Location in Medical Record [X] 34 years old female ED Notes 03/13 [X] s/p CS delivery ED Notes 03/13 [X] Former Smoker ED Notes 03/13 Present Treatments Results and Location in Medical Record [X] Chest Xray Collected 03/13 [X] TTE Collected 03/13 [X] Lasix 100mg IV MAR 03/13 CDS/Pulverizer Operator Signature: Fidencio Ghosh Phone #: [phone] Date/Time: 03/16/2020 08:37 This is a permanent part of the Medical Record [facility]
--- NOTE | 2020-03-16 08:43 | PQF ---
CLINICAL DOCUMENTATION CLARIFICATION FORM: Dear : Alexi Wade Date / Time:03/16/2020 08:42 Please exercise your independent, professional judgment in responding to the clarification form. Clinical indicators are provided on the bottom of this form for your review Please check appropriate box(es) to clarify if the following diagnosis has been ruled in our ruled out: cardiomyopathy [ ] Ruled in diagnosis [ ] Continue to treat [ ] Resolved [x ] Ruled out diagnosis [ ] Improving [ ] Cannot rule out diagnosis [ ] Other diagnosis [ ] Unable to determine Physician Signature: Date/Time: For continuity of documentation, please document condition throughout progress notes and discharge summary. Thank You. To be completed by CDI/Coding staff for physician review: Present Clinical Indicators - Signs / Symptoms / Labs Results and Location in Medical Record [ X ] rule out cardiomyopathy HP 03/13 [ X ] Interstitial and mild patchy parenchymal densities....could be mild asymmetric pulmonary edema vs infectious process Chest Xray 03/13 [ X ] reports SOB ED Notes 03/13 [ X ] edema present to bilateral lower extremities ED Notes 03/13 [ X ] bilateral pleural effusion and pulmonary edema ED Notes 07/ [ X ] EF 69-65% TTE 03/13 Present Risk Factors Results and Location in Medical Record [ X ] 34 years old female ED Notes 03/13 [ X ] s/p CS delivery ED Notes 03/13 [ X ] Former Smoker ED Notes 03/13 Present Treatments Results and Location in Medical Record [ X ] Chest Xray Collected 03/13 [ X ] TTE Collected 03/13 [ X ] Lasix 100mg IV MAR 03/13 CDS/Pharmacy Laboratory Technician Signature: Fidencio Ghosh Phone #: [facility] [phone] Date/Time: 03/16/2020 08:42 This is a permanent part of the Medical Record [facility]
== END 2020-03-14 09:28 | disposition home or self-care (01) | DRG 776 ==
LOC: ERS 14:08 → 3SW 16:28
PROVIDERS: ADMIT Obstetrics & Gynecology; ATTEND Obstetrics & Gynecology
DX: O99.53 Diseases of the respiratory system complicating the puerperium (principal); J81.1 Chronic pulmonary edema; O99.345 Other mental disorders complicating the puerperium; F41.9 Anxiety disorder, unspecified; Z88.1 Allergy status to other antibiotic agents; Z87.442 Personal history of urinary calculi; Z87.891 Personal history of nicotine dependence; Z88.0 Allergy status to penicillin; Z88.2 Allergy status to sulfonamides
CPT/HCPCS: 36415; 71045; 71275; 80053; 82553; 83605; 83880; 84484; 85025; 85610; 85730; 93005; 93306; 96374; J1940; Q9967